=== PATIENT | male | born 1965 | race Hispanic/Latino ===

== ENCOUNTER 2019-01-09 15:30 | Emergency (ER) | payer BC, SELFPAY ==
[~2019-01-09 15:30] MED LIST: ISOVUE-370 76%-LOCM 1 ML ONE
[2019-01-09] MEDS ORDERED: Heparin 25,000 units/D5W 500 ML ONE (15:36)
[2019-01-09] MEDS ORDERED: Nitroglycerin 50 MG/250 ML BOT 250 ML ONE (15:36)
[2019-01-09 15:51] LABS: #Basophils 0.1 thou/uL (0.0-0.2); #Eosinphils 0.1 thou/uL (0.0-0.7); #Lymphocytes 2.3 thou/uL (1.20-3.40); #Monocytes 0.5 thou/uL (0.11-0.59); %Basophils 0.9 % (0.0-1.0); %Eosinophils 1.5 % (0.0-10.0); %Lymphocytes 25.7 % (21.0-51.0); %Monocytes 5.6 % (0.0-10.0); %Neutrophils 66.3 % (42.0-75.0); Hemoglobin 15.9 g/dL (14.0-18.0); Mean Corpuscular Volume 85.7 fL (78.0-98.0); Mean Platelet Volume 8.8 fL (7.4-10.4); Platelet Count 167 thou/uL (130-400)
[2019-01-09 15:57] LABS: PTT 26.3 SEC (22.9-36.1); Prothrombin Time 13.3 SEC (12.0-14.7)
[2019-01-09 16:04] LABS: ALT (SGPT) 27 U/L (8-55); AST (SGOT) 27 U/L (5-34); Albumin 4.4 g/dL (3.5-5.0); Alkaline Phosphatase 80 U/L (40-150); Anion Gap 13 mmol/L (10-20); BUN (Urea Nitrogen) 17 mg/dL (8.4-25.7); Bilirubin, Total 0.6 mg/dL (0.2-1.2); Calc. Creatinine Clearance 0 mL/min (70-130); Calcium 9.3 mg/dL (7.8-10.44); Carbon Dioxide 27 mmol/L (22-29); Chloride 107 mmol/L (98-107); Estimated GFR-MDRD 70; Glucose 121 mg/dL (70-105); Potassium 3.2 mmol/L (3.5-5.1); Protein, Total 7.4 g/dL (6.0-8.3); Sodium 144 mmol/L (136-145)
[2019-01-09 16:07] LABS: Lipase 18 U/L (8-78)
[2019-01-09] MEDS ORDERED: niCARdipine 20MG In NaCl 20 MG/200 ML BAG ONE (16:11)
[2019-01-09 16:20] LABS: CK (CPK) 254 U/L (30-200)
[2019-01-09] MEDS ORDERED: Morphine 4 MG/ML VIAL ONE (16:22)
--- NOTE | 2019-01-09 16:44 | RAD ---
CHEST 1 VIEW: Date: 01/09/19 HISTORY: Chest pain. COMPARISON: None. FINDINGS: Lungs are clear. No pneumothorax or effusion. There is a punctate nodule projecting over the left upp er lobe measuring 3.0 mm, although this could be a prominent vessel seen on-end. No acute osseous abnormality. IMPRESSION: No acute intrathoracic abnormality. Possible 3.0 mm nodule left upper lobe, although may be a vessel seen en face. Follow-up radiograph in 6 months may be performed. POS: [facility]
[2019-01-09] MEDS ORDERED: Metoprolol Tartrate 5 MG/5 ML VIAL ONE (16:50)
--- NOTE | 2019-01-09 17:00 | CT ---
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 History of stomach cancer. COMPARISON: None available. FINDINGS: There is a [place] Type B aortic dissection with the dissection beginning at the most distal aspect of the origin of the left subclavian artery with the aortic dissection extending into the abdominal a issac and subsequently into the right common iliac artery, as well as into the right internal iliac ar nathan. Portions of the false lumen demonstrate diminished attenuation suggesting areas of either very slow flow or probable thrombosis. There is ectasia of the descending thoracic aorta. There is a normal arrangement of the great vessels which are patent. The mesenteric vessels and renal arteries originate from the true lumen of the aortic dissection. There is mild to moderate narrowing involving the proximal right renal artery. A 4.0 mm pleural based pulmonary nodule is seen in the anterolateral aspect of the right middle lobe. Lungs are otherwise clear, although the most superior aspect of the left lung apex is not imaged. There is no evidence of lymphadenopathy within the chest. The liver, spleen, pancreas, bilateral adrenal glands, and left kidney demonstrate a normal CT appear ance. There is a wedge-shaped area of diminished attenuation seen in the anteromedial aspect of the superio r pole of the right kidney, likely related to small infarction. There is an exophytic hypodense lesion measuring 1.8 cm within the mid portion of the right kidney, w hich cannot be characterized as a simple cyst based on attenuation coefficient. Follow-up CT abdomen with and without IV contrast is recommended. The stomach is distended with fluid and particulate matter, likely related to recent ingestion of a m eal. Scattered degenerative changes are seen in the spine. IMPRESSION: 1. [place] Type B aortic dissection which extends from the level of the distal aspect origin of the left subclavian artery into the infrarenal abdominal aorta and subsequently into the right common il iac artery and extending into the right internal iliac artery. Portions of the false lumen demonstrat e either very slow flow or are thrombosed based on diminished attenuation. There is ectasia of the de scending thoracic aorta. 2. Focal mild to moderate narrowing involving the proximal single right renal artery. There is low d ensity focus in the superior pole of the left kidney thought to be related to small focal area of inf arction. 3. Low density lesion within the mid portion of the right kidney which cannot be characterized as a simple cyst. Follow-up CT exam with and without IV contrast is recommended. This may represent a [place] Type II renal cystic lesion. 4. Less than 5.0 mm pleural based pulmonary nodule right middle lobe. Above findings discussed with Dr. Stubbs in the emergency department on 01/09/19. CODE CR. POS: [facility]
--- NOTE | 2019-01-12 20:57 | EKG ---
Test Reason : Blood Pressure : / mmHG Vent. Rate : 055 BPM Atrial Rate : 055 BPM P-R Int : 136 ms QRS Dur : 088 ms QT Int : 424 ms P-R-T Axes : 023 -10 219 degrees QTc Int : 405 ms Sinus bradycardia Possible Left atrial enlargement Left ventricular hypertrophy T wave abnormality, consider lateral ischemia Abnormal ECG Confirmed by GASTON MONTOYA, LOUIE Steven ([id number]), editor news ANJUM CUELLAR ([id number]) on 01/12/2019 8:57:17 PM Referred By: Confirmed By:LOUIE FELDMAN MD
== END 2019-01-09 17:12 | disposition short-term general hospital (02) ==
LOC: ERS 15:30
DX: I71.00 Dissection of unspecified site of aorta (principal); I10 Essential (primary) hypertension
CPT/HCPCS: 71045; 71275; 80053; 82550; 83690; 84484; 85025; 85610; 85730; 86850; 86900; 86901; 93005; 94760; 96365; 96375; 99292; J1644; J2270; Q9966

== ENCOUNTER 2019-02-23 12:30 | Emergency (ER) | payer SELFPAY ==
[2019-02-23 13:10] LABS: #Lymphocytes 1.4 thou/uL (1.20-3.40); #Monocytes 0.6 thou/uL (0.11-0.59); #Neutrophils 10.1 thou/uL (1.40-6.50); %Eosinophils 0.3 % (0.0-10.0); %Lymphocytes 11.8 % (21.0-51.0); %Monocytes 4.5 % (0.0-10.0); %Neutrophils 83.3 % (42.0-75.0); Hemoglobin 13.8 g/dL (14.0-18.0); Mean Corpuscular HGB CONC 33.4 g/dL (32.0-36.0); Mean Corpuscular Hemoglobin 27.4 pg (27.0-31.0); Mean Corpuscular Volume 82.1 fL (78.0-98.0); Mean Platelet Volume 7.2 fL (7.4-10.4); Platelet Count 389 thou/uL (130-400); RBC Distribution Width 12.4 % (11.5-14.5); Red Blood Cell (RBC) Count 5.05 mill/uL (4.70-6.10); White Blood Cell (WBC) Count 12.2 thou/uL (4.8-10.8)
[2019-02-23 13:22] LABS: ALT (SGPT) 28 U/L (8-55); AST (SGOT) 20 U/L (5-34); Albumin 4.1 g/dL (3.5-5.0); Alkaline Phosphatase 134 U/L (40-150); Anion Gap 18 mmol/L (10-20); BUN (Urea Nitrogen) 8 mg/dL (8.4-25.7); Bilirubin, Total 0.8 mg/dL (0.2-1.2); Calc. Creatinine Clearance 0 mL/min (70-130); Calcium 10.3 mg/dL (7.8-10.44); Carbon Dioxide 26 mmol/L (22-29); Chloride 99 mmol/L (98-107); Estimated GFR-MDRD Greater than 90; Globulin 4.7 g/dL (2.4-3.5); Glucose 126 mg/dL (70-105); Protein, Total 8.8 g/dL (6.0-8.3); Sodium 139 mmol/L (136-145)
[2019-02-23] MEDS ORDERED: Labetalol HCl 100 MG/20 ML VIAL ONE (13:55)
[2019-02-23] MEDS ORDERED: Esmolol 2,500 MG/250 ML 250 ML ONE (13:58)
[2019-02-23] MEDS ORDERED: Fentanyl 100 MCG/2 ML VIAL ONE (14:06)
--- NOTE | 2019-02-23 14:29 | CT ---
CT angiogram thorax and abdomen with IV contrast and 3-D reconstructions HISTORY: Patient post aortic stent graft placement 1 month ago. Patient presents with abdominal pain which started last night. COMPARISON: 01/09/2019 FINDINGS: Postsurgical changes related to placement of an aortic stent graft within the descending thoracic aor ta is seen. Proximal portion of the aortic stent graft abuts the origin of the left subclavian artery. There is normal arrangement of the great vessels at the aortic arch which do appear patent; a lthough, the origin of left subclavian arteries is difficult to accurately assess due to stent graft material in this region. Ascending thoracic aorta as well as aortic arch are normal in caliber. The aortic stent graft extends to the level of the distal thoracic aorta at the level of aortic hiatus. Again noted is the aortic dissection involving the descending thoracic aorta which extends into the r ight common iliac artery and subsequently into the right internal iliac artery which was also noted on the prior exam. The mesenteric vessels as well as renal arteries do arise from the true lumen of t he aortic dissection. There is focal moderate to severe narrowing at the origin of the CRIS. The celiac artery also demonstrates mild to moderate narrowing at the origin. The SMA is patent. Single p atent bilateral renal arteries are visualized. Contrast within the false lumen of the [place] type B aortic dissection extends superiorly along the right lateral and anterolateral aspect of the stent graft to the level of the mid thoracic aorta. The thoracic aorta at the level of the aortic hiatus measures 4.1 cm in greatest dimensions, and this previously measured 3.3 cm. A moderately large left pleural effusion and atelectasis is present. The right lung is clear. There is no lymphadenopathy present. A few subcentimeter low density foci are again seen in each lobe of the liver which are too small to characterize. Heterogeneous enhancement of the spleen is related to phase of enhancement. Exophytic hypodense lesio n midportion right kidney is again seen and stable in size. There is diminished enhancement again present involving involving the medial aspect superior pole right kidney likely to focal infarction. The right kidney and bilateral adrenal glands as well as pancreas demonstrate a normal CT appearance. No free fluid or fluid collection is seen in the abdomen. There is been no other interval change. IMPRESSION: 1. Interval endovascular repair of an aortic dissection involving the descending thoracic aorta with aortic stent graft noted in place which begins near the level of the origin of the left subclavian artery and extends to near the level of the aortic hiatus. The stent graft is patent. Previously seen [place] type B dissection involving the abdominal aorta does persist and extends into the right common iliac artery and subsequently into origin of the right internal iliac artery. There is enhance ment within the false lumen of the abdominal aortic dissection which extends superiorly adjacent to the stent graft. There is dilatation of the descending thoracic aorta distally near the aortic hiatus measuring 4.1 cm, and this previously measured 3.3 cm. 2. Moderately large left pleural effusion. 3. Stable hypodense right renal lesion.
== END 2019-02-23 15:10 | disposition short-term general hospital (02) ==
LOC: ERS 12:30
DX: I71.02 Dissection of abdominal aorta (principal); I10 Essential (primary) hypertension; Z79.899 Other long term (current) drug therapy
CPT/HCPCS: 71275; 80053; 83605; 83690; 84484; 85025; 93005; 96365; 96375; 99292; J3010; Q9966

== ENCOUNTER 2022-07-09 13:14 | Emergency (ER) | payer OTHER, SELFPAY ==
[2022-07-09] MEDS ORDERED: Morphine 4 MG/ML VIAL ONE (14:28)
== END 2022-07-09 15:01 | disposition home or self-care (01) ==
LOC: ERS 13:14
DX: M54.50 Low back pain, unspecified (principal); D64.9 Anemia, unspecified; Z79.899 Other long term (current) drug therapy; V89.2XXA Person injured in unspecified motor-vehicle accident, traffic, initial encounter
CPT/HCPCS: 96372; 99284; J2270

== ENCOUNTER 2023-03-11 17:57 | Emergency (ER) | payer SELFPAY ==
[2023-03-11] MEDS ORDERED: Ondansetron ODT 4 MG TAB ONE (18:54)
[2023-03-11] MEDS ORDERED: Mag-Al 1200 mg/1200 mg/30 ML UDCUP ONE (18:55)
[2023-03-11] MEDS ORDERED: Lidocaine Viscous Sol 2% 15 ml UD Cup ONE (18:55)
[2023-03-11 19:25] LABS: #Eosinphils 0.1 thou/uL (0.0-0.7); #Lymphocytes 1.1 thou/uL (1.20-3.40); #Monocytes 0.6 thou/uL (0.11-0.59); #Neutrophils 10.6 thou/uL (1.40-6.50); %Basophils 0.1 % (0.0-1.0); %Eosinophils 0.7 % (0.0-10.0); %Lymphocytes 8.9 % (21.0-51.0); %Monocytes 4.6 % (0.0-10.0); %Neutrophils 85.7 % (42.0-75.0); Hemoglobin 14.8 g/dL (14.0-18.0); Mean Corpuscular HGB CONC 34.8 g/dL (32.0-36.0); Mean Corpuscular Hemoglobin 30.6 pg (27.0-31.0); Mean Corpuscular Volume 87.8 fl (78.0-98.0); Platelet Count 164 10x3/uL (130-400); Red Blood Cell (RBC) Count 4.85 mill/uL (4.70-6.10); White Blood Cell (WBC) Count 12.4 10x3/uL (4.8-10.8)
[2023-03-11 19:34] LABS: ALT (SGPT) 18 U/L (8-55); AST (SGOT) 37 U/L (5-34); Albumin 4.1 g/dL (3.5-5.0); Alkaline Phosphatase 85 U/L (40-110); Anion Gap 13 mmol/L (10-20); BUN (Urea Nitrogen) 14 mg/dL (8.4-25.7); Bilirubin, Total 0.6 mg/dL (0.2-1.2); Calc. Creatinine Clearance 0 mL/min (70-130); Calcium 8.6 mg/dL (7.8-10.44); Carbon Dioxide 22 mmol/L (22-29); Chloride 107 mmol/L (98-107); Estimated GFR 101; Globulin 2.8 g/dL (2.4-3.5); Glucose 157 mg/dL (70-105); Lipase 30 U/L (8-78); Potassium 3.5 mmol/L (3.5-5.1); Protein, Total 6.9 g/dL (6.0-8.3); Sodium 138 mmol/L (136-145)
== END 2023-03-11 20:34 | disposition home or self-care (01) ==
LOC: ERS 17:57
DX: K80.20 Calculus of gallbladder without cholecystitis without obstruction (principal); D72.829 Elevated white blood cell count, unspecified; I10 Essential (primary) hypertension
CPT/HCPCS: 71045; 76705; 80053; 83690; 84484; 85025; 93005; Q0162

== ENCOUNTER 2023-10-13 12:40 | Outpatient (CLI) | payer OTHER ==
[2023-10-13] MEDS ORDERED: Iopamidol 370 76% 100 ML VIAL ONE (13:48)
== END 2023-10-13 12:41 | disposition home or self-care (01) ==
LOC: CT 12:40
PROVIDERS: ATTEND Thoracic Surgery (Cardiothoracic Vascular Surgery)
DX: I71.02 Dissection of abdominal aorta (principal); I77.72 Dissection of iliac artery; Z95.828 Presence of other vascular implants and grafts
CPT/HCPCS: 71275; 74174; Q9967